=== PATIENT | female | born 1995 | race Caucasian/White ===

== ENCOUNTER 2020-06-29 17:30 | Emergency (ER) | payer OTHER ==
[2020-06-29] MEDS ORDERED: Ibuprofen 400 MG Tab PO ONE (17:42)
[2020-06-29] MEDS ORDERED: Acetaminophen 500 MG Tab PO ONE (17:42)
--- NOTE | 2020-06-29 18:38 | EDM.PDOC ---
ED HPI GENERAL MEDICAL PROBLEM - General Chief Complaint: Lower Extremity Injury/Pain Stated Complaint: INJURY TO RIGHT ANKLE Time Seen by Provider: 06/29/20 17:34 Source of Information: Reports: Patient History Limitations: Reports: No Limitations - History of Present Illness INITIAL COMMENTS - FREE TEXT/NARRATIVE: This is a very pleasant 24-year-old female with no pertinent past medical history presenting with a right ankle injury. About an hour ago, the patient tripped and fell while walking on the street, twisting her right ankle. She noted swelling and deformity of the right ankle and has been unable to bear weight. She denies any other injuries. No self treatment prior to arrival. No other complaints. Past medical history: Reviewed, no additional pertinent history. Surgical history: Reviewed in system, no additional pertinent history. Social history: Reviewed in system, no additional pertinent history. Family history: Reviewed in system, no additional pertinent history. PHYSICAL EXAM Vital signs reviewed. Nursing notes reviewed. Constitutional: Awake, alert, non-distressed. Head: Normocephalic, atraumatic. Eyes: EOMI, conjunctiva normal, no discharge, no scleral icterus. Ears, Nose, Throat: External ears and nose normal, moist oral mucosa. Cardiovascular: 2+ right DP pulse, capillary refill less than 2 seconds in the right foot. Pulmonary: normal work of breathing, no accessory muscle use. Abdomen/GI: Soft, nontender, nondistended, no guarding or rigidity, no masses. Musculoskeletal: Swelling to the lateral malleolus of the right ankle along with significant tenderness. Integumentary: Appropriate color for ethnicity, warm, dry, no pallor or jaundice, no rash. Neurologic: Alert, answering questions appropriately, normal speech, no facial droop, moving all extremities well. Sensation intact to light touch to the right foot. Psychiatric: Appropriate mood and affect, normal thought process. This patient was seen and evaluated during the 2019 SARS-CoV-2 novel coronavirus pandemic period. Community viral transmission is ongoing at time of this encounter and the emergency department is operating under pandemic response procedures. Right Ankle Pain Score (Numeric/FACES): 6 - Related Data Allergies Allergy/AdvReac Type Severity Reaction Status Date / Time No Known Allergies Allergy Verified 06/29/20 18:01 Home Meds: Home Meds . [No Known Home Meds] 06/29/20 [History] Past Medical History - Past Health History Medical/Surgical History: Denies Medical/Surgical History Social & Family History - Tobacco Use Tobacco Use Status *Q: Never Tobacco User - Caffeine Use Caffeine Use: Reports: Coffee - Recreational Drug Use Recreational Drug Use: No Review of Systems - Review of Systems Review Of Systems: See Below ED EXAM, GENERAL - Physical Exam Exam: See Below ED TRAUMA EXTREMITY PROCEDURES - Splinting Right Lower Extremity Splint Site: Ankle Pre-Procedure NV Status: Normal Post-Procedure NV Status: Normal Splint Material: Fiberglass Splint Design: Posterior Applied & Form Fitted By: Provider Provider Post-Splint Application NV Check: NV Status Normal, Good Position Complications: Yes Course - Vital Signs Text/Narrative:: 24-year-old female with a right ankle injury. Differential diagnosis includes but is not limited to: Fracture, dislocation, soft tissue injury, etc. Neurovascularly intact in the right foot. X-rays of the right ankle demonstrate what looks to be an fracture of the right talus - dome appears intact. I see no fracture involving the right tibia and the mortise looks to be intact. The medial clear space is of normal measurement. Patient was given Tylenol for pain. She will be placed in a short leg Ortho- Glass splint and given crutches. Instructed to follow-up with orthopedic surgery in the next week for reevaluation. Patient prefers to take acetaminophen at home for pain. Discussed splint care precautions along with ED return pre cautions. Plan: Patient is stable to discharge home with outpatient orthopaedic surgery clinic follow-up. Strict emergency department return precautions were provided, patient indicated understanding. All questions were answered prior to departure. Discharged in good condition. DME: crutches, duration: 1 month. Indication: right talus fracture. Last Recorded V/S: Last Vital Signs Temp 36.1 C 06/29/20 17:58 Pulse 101 H 06/29/20 17:58 Resp 18 06/29/20 17:58 BP 119/91 H 06/29/20 17:58 Pulse Ox 100 06/29/20 17:58 - Orders/Labs/Meds Orders: Active Orders 24 hr Category Date Time Status Nothing Per Oral Diet [DIET] Diet 06/29/20 Lunch Active Meds: Medications Discontinued Medications Generic Name Dose Route Start Last Admin Trade Name Shayan PRN Reason Stop Dose Admin Acetaminophen 1,000 mg 06/29/20 17:42 06/29/20 18:41 Tylenol Extra Strength PO 06/29/20 17:43 1,000 mg ONETIME ONE Administration Ibuprofen 400 mg 06/29/20 17:42 06/29/20 18:40 Motrin PO 06/29/20 17:43 Not Given ONETIME ONE Departure - Departure Time of Disposition: 18:47 Disposition: Home, Self-Care 01 Condition: Good Clinical Impression: Fracture of right talus Qualifiers: Encounter type: initial encounter Fracture type: closed Talus location: unspecified portion of talus Fracture alignment: displaced Qualified Code(s): S92.101A - Unspecified fracture of right talus, initial encounter for closed fracture - Discharge Information Instructions: Crutch Use, Adult, [id number], Cast or Splint Care, Adult Referrals: [facility] - Orthopaedics [Provider Group] - 1 Week (For follow-up fracture care.) Forms: ED Department Discharge Additional Instructions: You were seen in the emergency department for an injury to her right ankle. X-rays demonstrate a mild fracture pattern of your right talus (one of the ankle bones). We will have you follow-up with the orthopedic surgery clinic in 1 to 2 weeks for reevaluation. I recommend [id number] extra strength acetaminophen (1000 mg every 6 hours) to help treat your pain. Warning signs to come back to the ER include: Worsening pain, numbness in the right foot, or any other new or concerning symptoms. Please return the emergency department immediately if your symptoms worsen or if you feel worse. Thank you for choosing the [facility] emergency department in [place] for your medical needs today. It was a pleasure caring for you. The following information is given to patients seen in the emergency department who are being discharged. This information is to outline your options for follow-up care. We provide all patients seen in our emergency department with a follow-up referral. The need for follow-up, as well as the timing and circumstances, are variable depending upon the specifics of your emergency department visit. If you don't have a primary care physician on staff, we will provide you with a referral. We always advise you to contact your personal physician following an emergency department visit to inform them of the circumstance of the visit and for follow-up with them and/or the need for any referrals to a consulting specialist. The emergency department will also refer you to a specialist when appropriate. This referral assures that you have the opportunity for follow-up care with a specialist. All of these measure are taken in an effort to provide you with optimal care, which includes your follow-up. Under all circumstances we always encourage you to contact your private physician who remains a resource for coordinating your care. When calling for follow-up care, please make the office aware that this follow-up is from your recent emergency room visit. If for any reason you are refused follow-up, please contact the [facility] Emergency Department at and asked to speak to the emergency department charge nurse. If you do not have a primary care physician that is caring for you, you can contact these clinics below to set up an appointment to establish care: [facility] - Primary [facility] [address] [place], [place] [id number] [facility] [address] [place] [address] Sepsis Event Note (ED) - Evaluation Sepsis Screening Result: No Definite Risk - Focused Exam Vital Signs: Vital Signs Temp Pulse Resp BP Pulse Ox 06/29/20 17:58 36.1 C 101 H 18 119/91 H 100 - My Orders Last 24 Hours: My Active Orders 06/29/20 Lunch Nothing Per Oral Diet [DIET] - Assessment/Plan Last 24 Hours: My Active Orders 06/29/20 Lunch Nothing Per Oral Diet [DIET]
--- NOTE | 2020-06-29 19:06 | CR ---
INDICATION: Right ankle pain. Twisted ankle injury. COMPARISON: None. TECHNIQUE: Right ankle 3 view. FINDINGS: Lateral soft tissue swelling. Ossific densities lateral to the talus suspicious for mildly avulsed fracture of the lateral process of the talus. Talar dome and tibial plafond are intact. Tibiotalar alignment is within normal limits. Joint spaces are maintained. Achilles insertion enthesophyte. IMPRESSION: Findings suspicious for fracture of the lateral process of the talus. Dictated by Krzysztof Shore MD @ Jun 29 2020 7:00PM Signed by Dr. Krzysztof Shore @ Jun 29 2020 7:04PM
== END 2020-06-29 19:32 | disposition home or self-care (01) ==
LOC: MW.ED 17:30
DX: S92.101A Unspecified fracture of right talus, initial encounter for closed fracture (principal); W01.0XXA Fall on same level from slipping, tripping and stumbling without subsequent striking against object, initial encounter; Y92.410 Unspecified street and highway as the place of occurrence of the external cause
CPT/HCPCS: 29515; 73610; 99283; A9270

== ENCOUNTER 2023-07-12 15:34 | Emergency (ER) | payer BC ==
[2023-07-12 15:54] LABS: BASOPHILS ABSOLUTE AUTO 0.01 K/uL (0.00-0.20); BASOPHILS PERCENT AUTO 0.2 % (0.0-1.0); EOSINOPHILS ABSOLUTE AUTO 0.05 K/uL (0.00-0.45); EOSINOPHILS PERCENT AUTO 0.8 % (0.0-6.0); HEMATOCRIT 32.2 % (37.0-47.0); HEMOGLOBIN 10.7 g/dL (12.0-16.0); IMMATURE GRAN ABSOLUTE AUTO 0.02 K/uL (0.00-0.05); IMMATURE GRAN PERCENT AUTO 0.3 % (0.0-0.4); LYMPHOCYTES ABSOLUTE AUTO 1.35 K/uL (1.00-4.80); LYMPHOCYTES PERCENT AUTO 22.2 % (24.0-44.0); MEAN CORPUSCULAR HEMOGLOBIN 28.6 pg (28.0-32.0); MEAN CORPUSCULAR HGB CONC 33.2 g/dL (32.0-36.0); MEAN CORPUSCULAR VOLUME 86.1 fL (83.0-99.0); MONOCYTES ABSOLUTE AUTO 0.44 K/uL (0.00-0.80); MONOCYTES PERCENT AUTO 7.2 % (0.0-8.0); NEUTROPHILS ABSOLUTE AUTO 4.21 K/uL (1.80-7.70); NEUTROPHILS PERCENT AUTO 69.3 % (41.0-71.0); PLATELET COUNT,PLT 188 K/uL (150-400); RED BLOOD CELL COUNT 3.74 M/uL (4.10-5.30); WHITE BLOOD CELL COUNT,WBC 6.08 K/uL (3.9-11.3)
[2023-07-12 16:11] LABS: CALCIUM 8.8 mg/dL (8.5-10.1); CARBON DIOXIDE,CO2 26.1 mmol/L (21.0-32.0); CREATININE 0.7 mg/dL (0.6-1.0); EST CRCL DRUG DOSING (CG) 116.35 mL/min
== END 2023-07-12 16:38 | disposition home or self-care (01) ==
LOC: MW.ED 15:34
DX: O99.413 Diseases of the circulatory system complicating pregnancy, third trimester (principal); I49.3 Ventricular premature depolarization; Z3A.36 36 weeks gestation of pregnancy
CPT/HCPCS: 36415; 80048; 85025; 93005; 93010; 99283; 99285

== ENCOUNTER 2023-08-11 17:12 | Inpatient (IN) | payer BC ==
[2023-08-11] MEDS ORDERED: Sodium Chloride 0.9% 10 ML Syringe FLUSH PRN (17:48)
[2023-08-11] MEDS ORDERED: Misoprostol 200 MCG Tab PO PRN (17:48)
[2023-08-11] MEDS ORDERED: Carboprost Tromethamine 250 MCG/1 mL Vial IM PRN (17:48)
[2023-08-11] MEDS ORDERED: Ondansetron 4 MG/2 ML SDV IVPUSH PRN (17:48)
[2023-08-11] MEDS ORDERED: Nalbuphine 10 MG/0.5 ML Syringe IVPUSH PRN (17:48)
[2023-08-11] MEDS ORDERED: Sodium Chloride 0.9% 20 ML SDV IV PRN (17:48)
[2023-08-11] MEDS ORDERED: Methylergonovine 0.2 MG/1 ML Amp IM PRN (17:48)
[2023-08-11] MEDS ORDERED: Water For Irrigation,Sterile 1,000 ML Container IRR PRN (17:48)
[2023-08-11] MEDS ORDERED: Tranexamic Acid IN NACL,ISO-OS 1,000 MG in Premix Bag 1 BAG IV PRN ×2 (17:48)
[2023-08-11] MEDS ORDERED: Sodium Chloride 0.9% 2.5 ML Syringe FLUSH PRN (17:48)
[2023-08-11] MEDS ORDERED: Lidocaine 1% 50 ML MDV INJECT PRN (17:48)
[2023-08-11] MEDS ORDERED: Ampicillin 2 GM in Sodium Chloride 0.9% 100 ML IV ONE (17:50)
[2023-08-11] MEDS ORDERED: Oxytocin/0.9 % Sodium Chloride 30 UNIT/500 ML BAG IV SCH (18:00)
[2023-08-11] MEDS ORDERED: Lactated Ringers 1,000 ML IV SCH (18:00)
[2023-08-11 18:25] LABS: HEMOGLOBIN 11.2 g/dL (12.0-16.0); MEAN CORPUSCULAR HEMOGLOBIN 28.9 pg (28.0-32.0); MEAN CORPUSCULAR HGB CONC 32.9 g/dL (32.0-36.0); MEAN CORPUSCULAR VOLUME 87.9 fL (83.0-99.0); MEAN PLATELET VOLUME 11.2 fL (9.4-12.3); PLATELET COUNT,PLT 241 K/uL (150-400); RED BLOOD CELL COUNT 3.87 M/uL (4.10-5.30); WHITE BLOOD CELL COUNT,WBC 5.88 K/uL (3.9-11.3)
[2023-08-11] MEDS ORDERED: Ampicillin 1 GM in Sodium Chloride 0.9% 50 ML IV SCH (22:00)
[2023-08-11] MEDS ORDERED: oxyCODONE 5 MG Tab PO PRN (23:26)
[2023-08-11] MEDS ORDERED: Lanolin 100% Cream 7 GM Tube TOP PRN (23:26)
[2023-08-11] MEDS ORDERED: Witch Hazel Medicated Pads 40/Jar TOP PRN (23:26)
[2023-08-11] MEDS ORDERED: Docusate Sodium 100 MG Cap PO PRN (23:26)
[2023-08-11] MEDS ORDERED: Benzocaine/Menthol 20%-0.5% Spray 78 GM Cannister TOP PRN (23:26)
[2023-08-11] MEDS ORDERED: Acetaminophen 500 MG Tab PO PRN (23:26)
[2023-08-11] MEDS ORDERED: Oxytocin 10 Units/1 ML SDV IM ONE (23:29)
[2023-08-12 00:35] LABS: PH,UMBILICAL ARTERIAL 7.236 (7.18-7.38)
[2023-08-12 00:36] LABS: PH,UMBILICAL VENOUS 7.319 (7.25-7.45)
[2023-08-12 06:11] LABS: HEMOGLOBIN 9.9 g/dL (12.0-16.0)
== END 2023-08-13 15:10 | disposition home or self-care (01) | DRG 560 ==
LOC: MW.OBCHECK 17:12 → MW.OB 17:16 → MW.OBCHECK 23:03 → OBSVTOIN 23:04 → MW.OB 23:04
PROVIDERS: ADMIT Obstetrics & Gynecology; ATTEND Obstetrics & Gynecology
PROC: 10E0XZZ Delivery of Products of Conception, External Approach (ICD-10-PCS; principal; 2023-08-11)
PROC: 0KQM0ZZ Repair Perineum Muscle, Open Approach (ICD-10-PCS; 2023-08-11)
PROC: 3E033VJ Introduction of Other Hormone into Peripheral Vein, Percutaneous Approach (ICD-10-PCS; 2023-08-11)
PROC: 10907ZC Drainage of Amniotic Fluid, Therapeutic from Products of Conception, Via Natural or Artificial Opening (ICD-10-PCS; 2023-08-11)
DX: O99.824 Streptococcus B carrier state complicating childbirth (principal); Z37.0 Single live birth; D62 Acute posthemorrhagic anemia; O48.0 Post-term pregnancy; O70.1 Second degree perineal laceration during delivery; O77.0 Labor and delivery complicated by meconium in amniotic fluid; O99.03 Anemia complicating the puerperium; Z3A.40 40 weeks gestation of pregnancy
CPT/HCPCS: 36415; 59409; 59414; 82803; 85014; 85018; 85027; 86592; 86850; 86900; 86901; A9270-GY; J0290; J2001; J2300; J2590; J3490